=== PATIENT | female | born 1960 | race Caucasian/White ===

== ENCOUNTER 2024-02-07 11:15 | Outpatient (RCR) | payer OTHER, SELFPAY ==
--- NOTE | 2023-12-20 16:00 | OT.OP.EVAL ---
Visit Care Team Role Provider Type JIM Butler Attending Provider Non-Staff Family Provider Primary Care Provider Referring Provider Specialty: Medical Address: [address], [place], [address] Email: Occupational Therapy Initial Evaluation OT Outpatient Adult Evaluation Start: 12/21/23 09:34 Freq: Status: Active Protocol: Document 12/20/23 16:00 AMS (Rec: 12/21/23 10:17 AMS [id number]) General Information - Adult Visit Number 1 Plan of Care Dates 12/20/23 - 01/31/24 Insurance Information [facility] [employer]; x 15 visits auth to 04/18/24 Visit Start Time 13:50 Visit Stop Time 14:30 Treatment Setting Outpatient Care Note Type Initial Evaluation Identification Confirmed Yes Identification Confirmed By Self Goals Custodial Goals 1. Rosy will be modified independent with execution of home exercise program utilizing written/visual instructions as needed. Assessment/Plan Treatment Assessment Rosy (preference for Nelida) is 63 y.o. 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 Nelida's medical history is significant for arthritis, back pain, blood pressure concerns, depression, diabetes II, fibromyalgia, osteopenia, breast cancer (), and PTSD. 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 She received therapy at [facility] in [place] for her L shoulder (for rotator cuff) and both hands last year in 2022 (treatment included hand massager/cupping tool, heat packs, ultrasound, and tendon glides). A rocker knife has been rec for cutting of meat. She also reported receiving corticosteroid injections to the L thumb d/t trigger finger w/ reported resolving of symptoms, as well as received corticosteroid injection to L CMCJ. She maintains her medication list on her personal cell phone, including name, purpose, and dosage: Albuterol inhaler ( asthma), amlodipine (blood pressure), atorvastatin ( cholesterol), buspirone ( anxiety), Empagufozin ( diabetes II), cetirizine ( allergies), benadryl ( allergies night time), Cholecalciferol (D3 deficient) , gabapentin (fibromyalgia), glipizide (diabetes II), hydroxychloroquine (arthritis) , leflunomide (arthritis), letrozole (breast cancer), levothroxine (thyroid), ozempic (diabetes II), Prazosin (PTSD), zometa ( prevention of calcium loss d/t letrozole), trazadone, losartan. Pain Assessment Grid completed w/ indication of 4 out of 10 relative to anterior /top/posterior L shoulder and inferior angle/medial border of R scapula. No indication of pain/discomfort in L ankle, although, she does wear a [facility] provided brace at all times on the L ankle (or reports that she will fall). She has smaller night time bilateral hand braces, as well as larger bilateral distal UE braces ( that she can not wear d/t removal w/ PTSD associated nightmares). Ambulated to session w/ elbow crutches. QuickDASH UE Outcome Measure Score = 59.09; indication of presence of tingling (pins and needles in arm, shoulder, hand since chemotherapy in 2019). QuickDASH Sports/ Performing Arts Module Score = 25.00; she plays the acoustic guitar and practices daily for at least 15 min depending on how her hands are feeling. She has invested in a 4-inch wide memory foam based guitar strap (vs original 2-inch wide standard guitar strap) which has helped as well. She sings acapella and plays acoustic guitar weekly which helps with her PTSD. She has a daily finger/hand flexibility routine, including opposition of thumb to finger tips and thumb circles. Mild flexion posturing of digits 2-5 w/ modified prayor stretch into extension; tenderness to palpation at bilateral CMCJs. (+) thumb adductor tightness palpated along 2nd metacarpal R > L, w/ slight tendency into hyperext at MPJs bilaterally w/ active thumb abd/ext. Bilateral radial thumb abd 50 degrees active. Bilateral palmar thumb abd 45 degrees active. Rec adding to current HEP as needed. Home Exercise Program 12/20/23 = Rec cont w/ tendon glides, thumb opposition, thumb circles w/ joint awareness, w/ suggestion for modified prayer stretch for encouraging extension. Length of treatment (weeks) 6 Plan of Care Start Date 12/20/23 Plan of Care End Date 01/31/24 Treatment Frequency Once a Week Therapeutic Contents Active Range of Motion, Adaptive Equipment Education, Client Education,Functional Activities,Home Exercise Program,Joint Protection, Manual Therapy,Education, Stretching/Flexibility Activities,Therapeutic Activities,Therapeutic Exercises,Modalities Modalities As Needed,As Prescribed Additional Types of Modalities Heat/Ultrasound/Paraffin/ Contrast/Ice
--- NOTE | 2023-12-28 15:23 | OT.OP.TRT ---
Visit Care Team Role Provider Type JIM Butler Attending Provider Non-Staff Family Provider Primary Care Provider Referring Provider Specialty: Medical Address: [address], [place], [address] Email: Occupational Therapy Treatment Note OT Outpatient Treatment Note - Adult Start: 12/21/23 09:34 Freq: Status: Active Protocol: Document 12/28/23 15:01 [facility] (Rec: 12/28/23 15:23 AMS [id number]) OT Outpatient Adult Treatment Note Session Time Visit Start Time 13:45 Visit Stop Time 14:30 Visit Information Visit Number 2 Plan of Care Dates 12/20/23 - 01/31/24 Insurance Information [facility] [employer]; x 15 visits auth to 04/18/24 Setting Treatment Setting Outpatient Care Visit Type Note Type Treatment Note General Information General Information *Tape allergy Rosy (preference for Nelida) is 63 y.o. 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 Nelida's medical history is significant for arthritis, back pain, blood pressure concerns, depression, diabetes II, fibromyalgia, osteopenia, breast cancer (), and PTSD. 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 She received therapy at [facility] in [place] for her L shoulder (for rotator cuff) and both hands last year in 2022 (treatment included hand massager/cupping tool, heat packs, ultrasound, and tendon glides). A rocker knife has been rec for cutting of meat. She also reported receiving corticosteroid injections to the L thumb d/t trigger finger w/ reported resolving of symptoms, as well as received corticosteroid injection to L CMCJ. She maintains her medication list on her personal cell phone, including name, purpose, and dosage: Albuterol inhaler ( asthma), amlodipine (blood pressure), atorvastatin ( cholesterol), buspirone ( anxiety), Empagufozin ( diabetes II), cetirizine ( allergies), benadryl ( allergies night time), Cholecalciferol (D3 deficient) , gabapentin (fibromyalgia), glipizide (diabetes II), hydroxychloroquine (arthritis) , leflunomide (arthritis), letrozole (breast cancer), levothroxine (thyroid), ozempic (diabetes II), Prazosin (PTSD), zometa ( prevention of calcium loss d/t letrozole), trazadone, losartan, celebrex (200 mg daily: anti-inflammatory). Pain Assessment Grid completed w/ indication of 4 out of 10 relative to anterior/top/ posterior L shoulder and inferior angle/medial border of R scapula. No indication of pain/discomfort in L ankle, although, she does wear a [facility] provided brace at all times on the L ankle (or reports that she will fall). She has smaller night time bilateral hand braces, as well as larger bilateral distal UE braces ( that she can not wear d/t removal w/ PTSD associated nightmares). Ambulated to session w/ elbow crutches. QuickDASH UE Outcome Measure Score = 59.09; indication of presence of tingling (pins and needles in arm, shoulder, hand since chemotherapy in 2019). QuickDASH Sports/ Performing Arts Module Score = 25.00; she plays the acoustic guitar and practices daily for at least 15 min depending on how her hands are feeling. She has invested in a 4-inch wide memory foam based guitar strap (vs original 2-inch wide standard guitar strap) which has helped as well. She sings acapella and plays acoustic guitar weekly which helps with her PTSD. She has a daily finger/hand flexibility routine, including opposition of thumb to finger tips and thumb circles. Mild flexion posturing of digits 2-5 w/ modified prayor stretch into extension; tenderness to palpation at bilateral CMCJs. (+) thumb adductor tightness palpated along 2nd metacarpal R > L, w/ slight tendency into hyperext at MPJs bilaterally w/ active thumb abd/ext. Bilateral radial thumb abd 50 degrees active. Bilateral palmar thumb abd 45 degrees active. Rec adding to current HEP as needed. - Subjective Identification Type Name Identification Reconciled With Medical Record Observations Rosy reported that her MD at the [facility] suggested acupuncture d /t chronic pain. Rosy reports sleeping upright in a recliner given rotator cuff injury (L UE) and use of cpap machine. Tape allergy was identified post-op surgery for breast cancer. Patient/Caregiver Compliance with Home Excellent Exercise Program - Objective Objective Measurements Please refer to below for progress towards meeting established OT goals: Contract Designer Goals 1. Rosy will be modified independent with execution of home exercise program utilizing written/visual instructions as needed. - Treatment 2 Descriptor Manual therapy. Myofascial release completed by clinician to address thumb adductor tightness L, address reported crepitus in CMCJ. 1 Descriptor Ultrasound. 20% duty cycle; lateral 2nd metacarpal to address thumb adductor. x 8 minutes. 2.0 w/cm2. Skin intact pre- and post- treatment. Denial of pain/ discomfort with modality use. Exercises 1 Descriptor Reviewed home exercise program /discussed alternatives. Thumb circles. Tendon glides. Reviewed passive MPJ ext w/ modified prayer pose w/ hold of 20-30 sec both ways. Reviewed bilateral self- myofasical release w/ hold of 20-30 sec both ways. Passive wrist/digit ext w/ forearm pronation w/ elbow in 90 degrees flex. Discussed potential use of TT and/or wall for passive wrist/digit ext; Rosy indicated that these would not be good options for her. Instructed in passive wrist RD/UD w/ use of TT w/ hold of 20-30 sec. - Assessment Assessment of Improvement Rosy reported [facility] recommended consideration of seeing an telegraph messenger given her chronic pain. Reviewed HEP and discussed alternatives/ modifications to current exercises. Also recommended consideration of passive wrist UD/RD. (+) tolerance and response to US and manual massage. In addition to medical information that Rosy keeps readily available on her cell phone, Rosy also utilizes a [employer] booklet in her personal wallet in case of emergencies (and has notified friends' and family of its location). Rec adding to current HEP as needed. Plan is to obtain written/visual instructions for Rosy prior to next session. - Plan Therapy Recommendations Continue with Current Program, Advance per Rehabilitation Protocol
--- NOTE | 2024-01-03 15:53 | OT.OP.TRT ---
Visit Care Team Role Provider Type JIM Butler Attending Provider Non-Staff Family Provider Primary Care Provider Referring Provider Specialty: Medical Address: [address], [place], [address] Email: Occupational Therapy Treatment Note OT Outpatient Treatment Note - Adult Start: 12/21/23 09:34 Freq: Status: Active Protocol: Document 01/03/24 15:38 AMS (Rec: 01/03/24 15:52 AMS [id number]) OT Outpatient Adult Treatment Note Session Time Visit Start Time 11:15 Visit Stop Time 11:59 Visit Information Visit Number 3 Plan of Care Dates 12/20/23 - 01/31/24 Insurance Information [facility] [employer]; x 15 visits auth to 04/18/24 Setting Treatment Setting Outpatient Care Visit Type Note Type Treatment Note General Information General Information *Tape allergy Rosy (preference for Nelida) is 63 y.o. 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 Nelida's medical history is significant for arthritis, back pain, blood pressure concerns, depression, diabetes II, fibromyalgia, osteopenia, breast cancer (), and PTSD. 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 She received therapy at [facility] in [place] for her L shoulder (for rotator cuff) and both hands last year in 2022 (treatment included hand massager/cupping tool, heat packs, ultrasound, and tendon glides). A rocker knife has been rec for cutting of meat. She also reported receiving corticosteroid injections to the L thumb d/t trigger finger w/ reported resolving of symptoms, as well as received corticosteroid injection to L CMCJ. She maintains her medication list on her personal cell phone, including name, purpose, and dosage: Albuterol inhaler ( asthma), amlodipine (blood pressure), atorvastatin ( cholesterol), buspirone ( anxiety), Empagufozin ( diabetes II), cetirizine ( allergies), benadryl ( allergies night time), Cholecalciferol (D3 deficient) , gabapentin (fibromyalgia), glipizide (diabetes II), hydroxychloroquine (arthritis) , leflunomide (arthritis), letrozole (breast cancer), levothroxine (thyroid), ozempic (diabetes II), Prazosin (PTSD), zometa ( prevention of calcium loss d/t letrozole), trazadone, losartan, celebrex (200 mg daily: anti-inflammatory). Pain Assessment Grid completed w/ indication of 4 out of 10 relative to anterior/top/ posterior L shoulder and inferior angle/medial border of R scapula. No indication of pain/discomfort in L ankle, although, she does wear a VA provided brace at all times on the L ankle (or reports that she will fall). She has smaller night time bilateral hand braces, as well as larger bilateral distal UE braces ( that she can not wear d/t removal w/ PTSD associated nightmares). Ambulated to session w/ elbow crutches. QuickDASH UE Outcome Measure Score = 59.09; indication of presence of tingling (pins and needles in arm, shoulder, hand since chemotherapy in 2019). QuickDASH Sports/ Performing Arts Module Score = 25.00; she plays the acoustic guitar and practices daily for at least 15 min depending on how her hands are feeling. She has invested in a 4-inch wide memory foam based guitar strap (vs original 2-inch wide standard guitar strap) which has helped as well. She sings acapella and plays acoustic guitar weekly which helps with her PTSD. She has a daily finger/hand flexibility routine, including opposition of thumb to finger tips and thumb circles. Mild flexion posturing of digits 2-5 w/ modified prayor stretch into extension; tenderness to palpation at bilateral CMCJs. (+) thumb adductor tightness palpated along 2nd metacarpal R > L, w/ slight tendency into hyperext at MPJs bilaterally w/ active thumb abd/ext. Bilateral radial thumb abd 50 degrees active. Bilateral palmar thumb abd 45 degrees active. Rec adding to current HEP as needed. - Subjective Identification Type Name Identification Reconciled With Medical Record Observations Report of wearing of fisherman 's gloves (fleece material); reported positive response to isotoner/compression gloves that are approx 2-3 inches to wrists for swelling management ; denied dx of lymphedema post - breast cancer surgery. Denied playing music given discomfort; will be singing later this afternoon w/ [employer] group. 12/28/23 = Rosy reported that her [facility] suggested acupuncture d/t chronic pain. Sleeps upright in recliner given rotator cuff injury (L UE); uses cpap machine. Tape allergy was identified post-op surgery for breast cancer. Patient/Caregiver Compliance with Home Excellent Exercise Program - Objective Objective Measurements Please refer to below for progress towards meeting established OT goals: Radar Operator Goals 1. Rosy will be modified independent with execution of home exercise program utilizing written/visual instructions as needed. - Treatment 2 Descriptor Manual therapy. Myofascial release completed by clinician to address thumb adductor tightness. 1 Descriptor Ultrasound. 20% duty cycle; lateral 2nd metacarpal to address tightness of the thumb space (volar/dorsal surface). x 10 minutes x 2. 2.0 w/cm2. Skin intact pre- and post- treatment. Denial of pain/ discomfort with modality use. Exercises 1 Descriptor Reviewed home exercise program /discussed alternatives. Thumb circles. Tendon glides. Reviewed passive MPJ ext w/ modified prayer pose w/ hold of 20-30 sec both ways. Reviewed bilateral self- myofasical release w/ hold of 20-30 sec both ways. Passive wrist/digit ext w/ forearm pronation w/ elbow in 90 degrees flex. Discussed potential use of TT and/or wall for passive wrist/digit ext; Rosy indicated that these would not be good options for her. Instructed in passive wrist RD/UD w/ use of TT w/ hold of 20-30 sec. - Assessment Assessment of Improvement (+) tolerance and response to US and manual massage. Mild edema present L CMCJ noted. Grinding/crepitus at MPJ. Increased tightness of L thumb webspace (noted medially, along shaft of 2nd metacarpal) compared to previous treatment session. Increased tenderness/inflammation noted distal to MPJ at site of attachment w/ tendency into hyperextension at the MPJ. (+) use of heat; may want to consider contrast baths. Rec adding to current HEP as needed. Plan is to obtain written/visual instructions for Rosy prior to next session. - Plan Therapy Recommendations Continue with Current Program, Advance per Rehabilitation Protocol
--- NOTE | 2024-01-11 16:01 | OT.OP.TRT ---
Visit Care Team Role Provider Type JIM Butler Attending Provider Non-Staff Family Provider Primary Care Provider Referring Provider Specialty: Medical Address: [address], [place], [address] Email: Occupational Therapy Treatment Note OT Outpatient Treatment Note - Adult Start: 12/21/23 09:34 Freq: Status: Active Protocol: Document 01/11/24 15:50 AMS (Rec: 01/11/24 16:00 AMS [id number]) OT Outpatient Adult Treatment Note Session Time Visit Start Time 13:55 Visit Stop Time 14:28 Visit Information Visit Number 5 Plan of Care Dates 12/20/23 - 01/31/24 Insurance Information [facility] [employer]; x 15 visits auth to 04/18/24 Setting Treatment Setting Outpatient Care Visit Type Note Type Treatment Note General Information General Information *Tape allergy Rosy (preference for Nelida) is 63 y.o. 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 Nelida's medical history is significant for arthritis, back pain, blood pressure concerns, depression, diabetes II, fibromyalgia, osteopenia, breast cancer (), and PTSD. 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 She received therapy at [facility] in [place] for her L shoulder (for rotator cuff) and both hands last year in 2022 (treatment included hand massager/cupping tool, heat packs, ultrasound, and tendon glides). A rocker knife has been rec for cutting of meat. She also reported receiving corticosteroid injections to the L thumb d/t trigger finger w/ reported resolving of symptoms, as well as received corticosteroid injection to L CMCJ. She maintains her medication list on her personal cell phone, including name, purpose, and dosage: Albuterol inhaler ( asthma), amlodipine (blood pressure), atorvastatin ( cholesterol), buspirone ( anxiety), Empagufozin ( diabetes II), cetirizine ( allergies), benadryl ( allergies night time), Cholecalciferol (D3 deficient) , gabapentin (fibromyalgia), glipizide (diabetes II), hydroxychloroquine (arthritis) , leflunomide (arthritis), letrozole (breast cancer), levothroxine (thyroid), ozempic (diabetes II), Prazosin (PTSD), zometa ( prevention of calcium loss d/t letrozole), trazadone, losartan, celebrex (200 mg daily: anti-inflammatory). Pain Assessment Grid completed w/ indication of 4 out of 10 relative to anterior/top/ posterior L shoulder and inferior angle/medial border of R scapula. No indication of pain/discomfort in L ankle, although, she does wear a VA provided brace at all times on the L ankle (or reports that she will fall). She has smaller night time bilateral hand braces, as well as larger bilateral distal UE braces ( that she can not wear d/t removal w/ PTSD associated nightmares). Ambulated to session w/ elbow crutches. QuickDASH UE Outcome Measure Score = 59.09; indication of presence of tingling (pins and needles in arm, shoulder, hand since chemotherapy in 2019). QuickDASH Sports/ Performing Arts Module Score = 25.00; she plays the acoustic guitar and practices daily for at least 15 min depending on how her hands are feeling. She has invested in a 4-inch wide memory foam based guitar strap (vs original 2-inch wide standard guitar strap) which has helped as well. She sings acapella and plays acoustic guitar weekly which helps with her PTSD. She has a daily finger/hand flexibility routine, including opposition of thumb to finger tips and thumb circles. Mild flexion posturing of digits 2-5 w/ modified prayor stretch into extension; tenderness to palpation at bilateral CMCJs. (+) thumb adductor tightness palpated along 2nd metacarpal R > L, w/ slight tendency into hyperext at MPJs bilaterally w/ active thumb abd/ext. Bilateral radial thumb abd 50 degrees active. Bilateral palmar thumb abd 45 degrees active. Rec adding to current HEP as needed. - Subjective Identification Type Name Identification Reconciled With Medical Record Observations Rosy reported doing her exercises 2-3 times per day; she singing this weekend with her [employer] group. Use of circular silicone pad (dycem? or silicone cone jar truss puller helper) to assist with opening items/ including water bottles. 01/11/24 = Meaningful activities include playing the guitar, singing in [employer] group. Wears fleece [employer] gloves. (+) response to isotoner/compression gloves ~2 -3 inches to wrists. Rosy reported that [facility] suggested [facility] d/t chronic pain. Sleeps upright in recliner given rotator cuff injury (L UE); uses cpap machine. Tape allergy was identified post-op surgery for breast cancer. Patient/Caregiver Compliance with Home Excellent Exercise Program - Objective Objective Measurements Please refer to below for progress towards meeting established OT goals: Fpc Goals 1. Rosy will be modified independent with execution of home exercise program utilizing written/visual instructions as needed. - Treatment 3 Descriptor Use of heat. x 10 minutes. Skin intact pre- and post- treatment. Denied any pain/ discomfort w/ heat. 2 Descriptor Manual therapy. Myofascial release completed by clinician to address thumb adductor tightness. 1 Descriptor Ultrasound. 20% duty cycle; x 10 minutes. 2.0 w/cm2. Skin intact pre- and post- treatment. Address swelling. Site of CMC. Denial of pain/ discomfort with modality use. - Assessment Assessment of Improvement Good recall of previous treatment sessions and good awareness of problem solving strategies (relative to use of AE, such as dycem silicone cone/or AE similar to this to assist w/ opening containers, including water bottles); completing exercises daily 2-3 times based on report. (+) tolerance and response to US and manual massage. (+) use of heat at home; did use x 10 minutes at beginning of session based on patient request; may want to consider contrast baths. Rec adding to current HEP as needed. - Plan Therapy Recommendations Continue with Current Program, Advance per Rehabilitation Protocol
--- NOTE | 2024-01-17 16:00 | OT.OP.TRT ---
Visit Care Team Role Provider Type JIM Butler Attending Provider Non-Staff Family Provider Primary Care Provider Referring Provider Specialty: Medical Address: [address], [place], [address] Email: Occupational Therapy Treatment Note OT Outpatient Treatment Note - Adult Start: 12/21/23 09:34 Freq: Status: Active Protocol: Document 01/17/24 16:00 AMS (Rec: 01/18/24 10:21 AMS [id number]) OT Outpatient Adult Treatment Note Session Time Visit Start Time 13:45 Visit Stop Time 14:25 Visit Information Visit Number 6 Plan of Care Dates 12/20/23 - 01/31/24 Insurance Information [employer]; x 15 visits auth to 04/18/24 Setting Treatment Setting Outpatient Care Visit Type Note Type Treatment Note General Information General Information *Tape allergy Rosy (preference for Nelida) is 63 y.o. 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 Nelida's medical history is significant for arthritis, back pain, blood pressure concerns, depression, diabetes II, fibromyalgia, osteopenia, breast cancer (), and PTSD. 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 She received therapy at [facility] in [place] for her L shoulder (for rotator cuff) and both hands last year in 2022 (treatment included hand massager/cupping tool, heat packs, ultrasound, and tendon glides). A rocker knife has been rec for cutting of meat. She also reported receiving corticosteroid injections to the L thumb d/t trigger finger w/ reported resolving of symptoms, as well as received corticosteroid injection to L CMCJ. She maintains her medication list on her personal cell phone, including name, purpose, and dosage: Albuterol inhaler ( asthma), amlodipine (blood pressure), atorvastatin ( cholesterol), buspirone ( anxiety), Empagufozin ( diabetes II), cetirizine ( allergies), benadryl ( allergies night time), Cholecalciferol (D3 deficient) , gabapentin (fibromyalgia), glipizide (diabetes II), hydroxychloroquine (arthritis) , leflunomide (arthritis), letrozole (breast cancer), levothroxine (thyroid), ozempic (diabetes II), Prazosin (PTSD), zometa ( prevention of calcium loss d/t letrozole), trazadone, losartan, celebrex (200 mg daily: anti-inflammatory). Pain Assessment Grid completed w/ indication of 4 out of 10 relative to anterior/top/ posterior L shoulder and inferior angle/medial border of R scapula. No indication of pain/discomfort in L ankle, although, she does wear a [facility] provided brace at all times on the L ankle (or reports that she will fall). She has smaller night time bilateral hand braces, as well as larger bilateral distal UE braces ( that she can not wear d/t removal w/ PTSD associated nightmares). Ambulated to session w/ elbow crutches. QuickDASH UE Outcome Measure Score = 59.09; indication of presence of tingling (pins and needles in arm, shoulder, hand since chemotherapy in 2019). QuickDASH Sports/ Performing Arts Module Score = 25.00; she plays the acoustic guitar and practices daily for at least 15 min depending on how her hands are feeling. She has invested in a 4-inch wide memory foam based guitar strap (vs original 2-inch wide standard guitar strap) which has helped as well. She sings acapella and plays acoustic guitar weekly which helps with her PTSD. She has a daily finger/hand flexibility routine, including opposition of thumb to finger tips and thumb circles. Mild flexion posturing of digits 2-5 w/ modified prayor stretch into extension; tenderness to palpation at bilateral CMCJs. (+) thumb adductor tightness palpated along 2nd metacarpal R > L, w/ slight tendency into hyperext at MPJs bilaterally w/ active thumb abd/ext. Bilateral radial thumb abd 50 degrees active. Bilateral palmar thumb abd 45 degrees active. Rec adding to current HEP as needed. - Subjective Identification Type Name Identification Reconciled With Medical Record Observations Rosy reported doing her exercises 2-3 times per day; she singing this weekend with her [employer]. Use of circular silicone pad (dycem? or silicone cone jar canal equipment mechanic) to assist with opening items/ including water bottles. 01/11/24 = Meaningful activities include playing the guitar, singing in [employer]. Wears fleece [employer] gloves. (+) response to isotoner/compression gloves ~2 -3 inches to wrists. Rosy reported that her MD at the [facility] suggested acupuncture d/t chronic pain. Sleeps upright in recliner given rotator cuff injury (L UE); uses cpap machine. Tape allergy was identified post-op surgery for breast cancer. Patient/Caregiver Compliance with Home Excellent Exercise Program - Objective Objective Measurements Please refer to below for progress towards meeting established OT goals: [facility] Goals 1. Rosy will be modified independent with execution of home exercise program utilizing written/visual instructions as needed. - Treatment 3 Descriptor Use of heat. x 10 minutes. Skin intact pre- and post- treatment. Denied any pain/ discomfort w/ heat. 2 Descriptor Manual therapy. Myofascial release completed by clinician to address thumb adductor tightness. 1 Descriptor Ultrasound. 20% duty cycle; x 10 minutes. 2.0 w/cm2. Skin intact pre- and post- treatment. Address swelling. Volar surface of palm/radial. Discomfort verbalized on 1 occasion; 'there is a spot in there'. Exercises 1 Descriptor Reviewed home exercise program /discussed alternatives. Thumb circles. Tendon glides. Passive MPJ ext w/ modified prayer pose w/ hold of 20-30 sec both ways. Bilateral self- myofasical release w/ hold of 20-30 sec both ways; instructed in modification w/ use of 'practice golf ball'. Instructed in passive functional 'c' or thumb -> 2nd digit pad tip pinch w/ use of 'practice golf ball'; rec hold for 20-30 seconds (to support motor retraining/ passive ranging). Trialed tug- o-war w/ 'practice golf ball' w/ tip pinch w/ contralateral hand pulling for isometric hold for 3-5 sec; verbally indicated discomfort w/ this exercise. Thus, ceased (could work up to 3 x 10). Passive wrist/digit ext w/ forearm pronation w/ elbow in 90 degrees flex. Discussed potential use of TT and/or wall for passive wrist/digit ext; Rosy indicated that these would not be good options for her. Instructed in passive wrist RD/UD w/ use of TT w/ hold of 20-30 sec. - Assessment Assessment of Improvement Utilization of single R elbow crutch w/ reported main concern of ankle w/ balance. Good recall of previous treatment sessions and good awareness of problem solving strategies (relative to use of AE, such as dycem silicone cone/or AE similar to this to assist w/ opening containers). (+) tolerance and response to US and manual massage. Trialed modified myofascial release w/ use of 'practice golf ball'; trialed use of practice golf ball for retraining of functional 'c'/ maintaining available ROM, as well as isometric functional ' c'/tip pinch. Discomfort reported w/ this exercise, thus, ceased. Could work on increasing reps. Cont to review joint protection principles/avoiding positions of deformity w/ rice drier operator particularly when force is used. Indicated that golf ball was uncomfortable w/ preference for practice golf ball. Rec adding to current HEP as needed. - Plan Therapy Recommendations Continue with Current Program, Advance per Rehabilitation Protocol
--- NOTE | 2024-01-24 16:00 | OT.OP.TRT ---
Visit Care Team Role Provider Type JIM Butler Attending Provider Non-Staff Family Provider Primary Care Provider Referring Provider Specialty: Medical Address: [address], [place], [address] Email: Occupational Therapy Treatment Note OT Outpatient Treatment Note - Adult Start: 12/21/23 09:34 Freq: Status: Active Protocol: Document 01/24/24 16:00 AMS (Rec: 01/25/24 10:20 AMS [id number]) OT Outpatient Adult Treatment Note Session Time Visit Start Time 14:30 Visit Stop Time 15:15 Visit Information Visit Number 7 Plan of Care Dates 12/20/23 - 01/31/24 Insurance Information [facility] [employer]; x 15 visits auth to 04/18/24 Setting Treatment Setting Outpatient Care Visit Type Note Type Treatment Note General Information General Information *Tape allergy Rosy (preference for Nelida) is 63 y.o. 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 Nelida's medical history is significant for arthritis, back pain, blood pressure concerns, depression, diabetes II, fibromyalgia, osteopenia, breast cancer (), and PTSD. 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 She received therapy at [facility] in [place] for her L shoulder (for rotator cuff) and both hands last year in 2022 (treatment included hand massager/cupping tool, heat packs, ultrasound, and tendon glides). A rocker knife has been rec for cutting of meat. She also reported receiving corticosteroid injections to the L thumb d/t trigger finger w/ reported resolving of symptoms, as well as received corticosteroid injection to L CMCJ. She maintains her medication list on her personal cell phone, including name, purpose, and dosage: Albuterol inhaler ( asthma), amlodipine (blood pressure), atorvastatin ( cholesterol), buspirone ( anxiety), Empagufozin ( diabetes II), cetirizine ( allergies), benadryl ( allergies night time), Cholecalciferol (D3 deficient) , gabapentin (fibromyalgia), glipizide (diabetes II), hydroxychloroquine (arthritis) , leflunomide (arthritis), letrozole (breast cancer), levothroxine (thyroid), ozempic (diabetes II), Prazosin (PTSD), zometa ( prevention of calcium loss d/t letrozole), trazadone, losartan, celebrex (200 mg daily: anti-inflammatory). Pain Assessment Grid completed w/ indication of 4 out of 10 relative to anterior/top/ posterior L shoulder and inferior angle/medial border of R scapula. No indication of pain/discomfort in L ankle, although, she does wear a [facility] provided brace at all times on the L ankle (or reports that she will fall). She has smaller night time bilateral hand braces, as well as larger bilateral distal UE braces ( that she can not wear d/t removal w/ PTSD associated nightmares). Ambulated to session w/ elbow crutches. QuickDASH UE Outcome Measure Score = 59.09; indication of presence of tingling (pins and needles in arm, shoulder, hand since chemotherapy in 2019). QuickDASH Sports/ Performing Arts Module Score = 25.00; she plays the acoustic guitar and practices daily for at least 15 min depending on how her hands are feeling. She has invested in a 4-inch wide memory foam based guitar strap (vs original 2-inch wide standard guitar strap) which has helped as well. She sings acapella and plays acoustic guitar weekly which helps with her PTSD. She has a daily finger/hand flexibility routine, including opposition of thumb to finger tips and thumb circles. Mild flexion posturing of digits 2-5 w/ modified prayor stretch into extension; tenderness to palpation at bilateral CMCJs. (+) thumb adductor tightness palpated along 2nd metacarpal R > L, w/ slight tendency into hyperext at MPJs bilaterally w/ active thumb abd/ext. Bilateral radial thumb abd 50 degrees active. Bilateral palmar thumb abd 45 degrees active. Rec adding to current HEP as needed. - Subjective Identification Type Name Identification Reconciled With Medical Record Observations Report of doing thumb circles if when she wakes in the middle of the night when she feels as though the thumbs are locking up. Demonstrated 1st dorsal interrossei abduction exercise. 01/17/24 = Use of circular silicone pad (dycem? or silicone cone jar fire department marine engineer) to assist with opening items/ including water bottles. 01/11/24 = Meaningful activities include playing the [employer], singing in [employer]. Wears fleece [employer] gloves. (+) response to isotoner/compression gloves ~2 -3 inches to wrists. Rosy reported that her MD at the [facility] suggested acupuncture d/t chronic pain. Sleeps upright in recliner given rotator cuff injury (L UE); uses cpap machine. Patient/Caregiver Compliance with Home Excellent Exercise Program - Objective Objective Measurements Please refer to below for progress towards meeting established OT goals: Property Economist Goals 1. Rosy will be modified independent with execution of home exercise program utilizing written/visual instructions as needed. - Treatment 2 Descriptor Manual therapy. Myofascial release completed by clinician to address thumb adductor tightness. 1 Descriptor Ultrasound. 20% duty cycle; x 10 minutes. 2.0 w/cm2. Skin intact pre- and post- treatment. Address swelling. Dorsal surface of hand ( between 1st and 2nd metacarpals). Discomfort verbalized on 1 occasion; ' there is a spot in there'. Exercises 1 Descriptor Reviewed HEP/discussed alternatives. Thumb circles. Tendon glides. Passive MPJ ext w/ modified prayer pose w/ hold of 20-30 sec both ways. Bilateral self-myofasical release w/ hold of 20-30 sec both ways; instructed in modification w/ use of ' practice golf ball'. Instructed in passive functional 'c' or thumb -> 2nd digit pad tip pinch w/ use of 'practice golf ball'; rec hold for 20-30 seconds (to support motor retraining/ passive ranging). Trialed tug- o-war w/ 'practice golf ball' w/ tip pinch w/ contralateral hand pulling for isometric hold for 3-5 sec; verbally indicated discomfort w/ this exercise. Thus, ceased (could work up to 3 x 10). Passive wrist/digit ext w/ forearm pronation w/ elbow in 90 degrees flex. Discussed potential use of TT and/or wall for passive wrist/digit ext; Rosy indicated that these would not be good options for her. Instructed in passive wrist RD/UD w/ use of TT w/ hold of 20-30 sec. - Assessment Assessment of Improvement Utilization of single R elbow crutch. Good recall of previous treatment sessions and good awareness of problem solving strategies. (+) tolerance and response to US and manual massage. Reviewed exercises; tolerated myofascial thumb release stretch w/ practice golf ball approx 5 sec bilaterally. Did functional 'c' thumb to 2nd finger tip pad touches 1 x 10 bilaterally; need to ensure focus is on tip pinch vs strengthening thumb adductor. Did isometric hold for 2-3 sec x 2 reps prior to fatigue. Demonstrated awareness of dorsal interrossei strengthening; report of loss of rubberband. Cont to review joint protection principles/ avoiding positions of deformity w/ surgical supply assistant particularly when force is used. Indicated that golf ball was uncomfortable w/ preference for practice golf ball. Rec adding to current HEP as needed. - Plan Therapy Recommendations Continue with Current Program, Advance per Rehabilitation Protocol
--- NOTE | 2024-01-31 15:42 | OT.OPPOC ---
Physical, Occupational & Speech Therapy At [facility] Rosy Longoria [id number] 1960 Visit Care Team Role Provider Type JIM Butler Attending Provider Non-Staff Family Provider Primary Care Provider Referring Provider Address: [address], [place], [address] Occupational Therapy Plan of Care OT Outpatient Adult Evaluation Start: 12/21/23 09:34 Freq: Status: Active Protocol: Document 12/20/23 16:00 AMS (Rec: 12/21/23 10:17 AMS [id number]) General Information - Adult Visit Information Visit Number 1 Plan of Care Dates 12/20/23 - 01/31/24 Insurance Information [facility]; x 15 visits auth to 04/18/24 Session Time Visit Start Time 13:50 Visit Stop Time 14:30 Setting Treatment Setting Outpatient Care Visit Type Note Type Initial Evaluation Identification Identification Confirmed Yes Identification Confirmed By Self Goals [employer] Goals Mcfp Goals 1. Rosy will be modified independent with execution of home exercise program utilizing written/visual instructions as needed. Assessment/Plan Assessment Treatment Assessment Rosy (preference for Nelida) is 63 y.o. 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 Nelida's medical history is significant for arthritis, back pain, blood pressure concerns, depression, diabetes II, fibromyalgia, osteopenia, breast cancer (), and PTSD. 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 She received therapy at [facility] and [facility] in [place] for her L shoulder (for rotator cuff) and both hands last year in 2022 (treatment included hand massager/cupping tool, heat packs, ultrasound, and tendon glides). A rocker knife has been rec for cutting of meat. She also reported receiving corticosteroid injections to the L thumb d/t trigger finger w/ reported resolving of symptoms, as well as received corticosteroid injection to L CMCJ. She maintains her medication list on her personal cell phone, including name, purpose, and dosage: Albuterol inhaler ( asthma), amlodipine (blood pressure), atorvastatin ( cholesterol), buspirone ( anxiety), Empagufozin ( diabetes II), cetirizine ( allergies), benadryl ( allergies night time), Cholecalciferol (D3 deficient) , gabapentin (fibromyalgia), glipizide (diabetes II), hydroxychloroquine (arthritis) , leflunomide (arthritis), letrozole (breast cancer), levothroxine (thyroid), ozempic (diabetes II), Prazosin (PTSD), zometa ( prevention of calcium loss d/t letrozole), trazadone, losartan. Pain Assessment Grid completed w/ indication of 4 out of 10 relative to anterior /top/posterior L shoulder and inferior angle/medial border of R scapula. No indication of pain/discomfort in L ankle, although, she does wear a [facility] provided brace at all times on the L ankle (or reports that she will fall). She has smaller night time bilateral hand braces, as well as larger bilateral distal UE braces ( that she can not wear d/t removal w/ PTSD associated nightmares). Ambulated to session w/ elbow crutches. QuickDASH UE Outcome Measure Score = 59.09; indication of presence of tingling (pins and needles in arm, shoulder, hand since chemotherapy in 2019). QuickDASH Sports/ Performing Arts Module Score = 25.00; she plays the acoustic guitar and practices daily for at least 15 min depending on how her hands are feeling. She has invested in a 4-inch wide memory foam based guitar strap (vs original 2-inch wide standard guitar strap) which has helped as well. She sings acapella and plays acoustic guitar weekly which helps with her PTSD. She has a daily finger/hand flexibility routine, including opposition of thumb to finger tips and thumb circles. Mild flexion posturing of digits 2-5 w/ modified prayor stretch into extension; tenderness to palpation at bilateral CMCJs. (+) thumb adductor tightness palpated along 2nd metacarpal R > L, w/ slight tendency into hyperext at MPJs bilaterally w/ active thumb abd/ext. Bilateral radial thumb abd 50 degrees active. Bilateral palmar thumb abd 45 degrees active. Rec adding to current HEP as needed. Home Exercise Program 12/20/23 = Rec cont w/ tendon glides, thumb opposition, thumb circles w/ joint awareness, w/ suggestion for modified prayer stretch for encouraging extension. Plan Length of treatment (weeks) 6 Plan of Care Start Date 12/20/23 Plan of Care End Date 01/31/24 Treatment Frequency Once a Week Therapeutic Contents Active Range of Motion, Adaptive Equipment Education, Client Education,Functional Activities,Home Exercise Program,Joint Protection, Manual Therapy,Education, Stretching/Flexibility Activities,Therapeutic Activities,Therapeutic Exercises,Modalities Modalities As Needed,As Prescribed Additional Types of Modalities Heat/Ultrasound/Paraffin/ Contrast/Ice Functional Wrist/Hand Scan Hand Side Sensory Assessment Sensory Profile2 OT Outpatient Treatment Note - Adult Start: 12/21/23 09:34 Freq: Status: Active Protocol: Document 01/31/24 15:29 AMS (Rec: 01/31/24 15:42 AMS [id number]) OT Outpatient Adult Treatment Note Session Time Visit Start Time 13:45 Visit Stop Time 14:25 Visit Information Visit Number 8 Plan of Care Dates 01/31/24 - 03/13/24 Insurance Information [facility]; x 15 visits auth to 04/18/24 Setting Treatment Setting Outpatient Care Visit Type Note Type Progress Note General Information General Information *Tape allergy Rosy (preference for Nelida) is 63 y.o. 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 Nelida's medical history is significant for arthritis, back pain, blood pressure concerns, depression, diabetes II, fibromyalgia, osteopenia, breast cancer (), and PTSD. 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 She received therapy at [facility] in [place] for her L shoulder (for rotator cuff) and both hands last year in 2022 (treatment included hand massager/cupping tool, heat packs, ultrasound, and tendon glides). A rocker knife has been rec for cutting of meat. She also reported receiving corticosteroid injections to the L thumb d/t trigger finger w/ reported resolving of symptoms, as well as received corticosteroid injection to L CMCJ. She maintains her medication list on her personal cell phone, including name, purpose, and dosage: Albuterol inhaler ( asthma), amlodipine (blood pressure), atorvastatin ( cholesterol), buspirone ( anxiety), Empagufozin ( diabetes II), cetirizine ( allergies), benadryl ( allergies night time), Cholecalciferol (D3 deficient) , gabapentin (fibromyalgia), glipizide (diabetes II), hydroxychloroquine (arthritis) , leflunomide (arthritis), letrozole (breast cancer), levothroxine (thyroid), ozempic (diabetes II), Prazosin (PTSD), zometa ( prevention of calcium loss d/t letrozole), trazadone, losartan, celebrex (200 mg daily: anti-inflammatory). Pain Assessment Grid completed w/ indication of 4 out of 10 relative to anterior/top/ posterior L shoulder and inferior angle/medial border of R scapula. No indication of pain/discomfort in L ankle, although, she does wear a [facility] provided brace at all times on the L ankle (or reports that she will fall). She has smaller night time bilateral hand braces, as well as larger bilateral distal UE braces ( that she can not wear d/t removal w/ PTSD associated nightmares). Ambulated to session w/ elbow crutches. QuickDASH UE Outcome Measure Score = 59.09; indication of presence of tingling (pins and needles in arm, shoulder, hand since chemotherapy in 2019). QuickDASH Sports/ Performing Arts Module Score = 25.00; she plays the acoustic guitar and practices daily for at least 15 min depending on how her hands are feeling. She has invested in a 4-inch wide memory foam based guitar strap (vs original 2-inch wide standard guitar strap) which has helped as well. She sings acapella and plays acoustic guitar weekly which helps with her PTSD. She has a daily finger/hand flexibility routine, including opposition of thumb to finger tips and thumb circles. Mild flexion posturing of digits 2-5 w/ modified prayor stretch into extension; tenderness to palpation at bilateral CMCJs. (+) thumb adductor tightness palpated along 2nd metacarpal R > L, w/ slight tendency into hyperext at MPJs bilaterally w/ active thumb abd/ext. Bilateral radial thumb abd 50 degrees active. Bilateral palmar thumb abd 45 degrees active. Rec adding to current HEP as needed. - Subjective Identification Type Name Identification Reconciled With Medical Record Observations Use of single L elbow crutch d /t instability of ankle; use of lanyard and clothing with pockets available for use for transportation of items. 01/17/24 = Use of circular silicone pad (dycem? or silicone cone jar cpht) to assist with opening items/ including water bottles. 01/11/24 = Meaningful activities include playing the [employer], singing in [employer]. Wears fleece [employer] gloves. (+) response to isotoner/compression gloves ~2 -3 inches to wrists. Rosy reported that her MD at the [facility] suggested acupuncture d/t chronic pain. Sleeps upright in recliner given rotator cuff injury (L UE); uses cpap machine. Patient/Caregiver Compliance with Home Excellent Exercise Program - Objective Objective Measurements Please refer to below for progress towards meeting established OT goals: Mcfp Goals 1. Rosy will be modified independent with execution of home exercise program utilizing written/visual instructions as needed. - Treatment 2 Descriptor Manual therapy. Myofascial release completed by clinician to address thumb adductor tightness. 1 Descriptor Ultrasound. 20% duty cycle; x 10 minutes. 2.0 w/cm2. Skin intact pre- and post- treatment. Address swelling/ muscular tightness. Dorsal surface of hand (between 1st and 2nd metacarpals). Ultrasound. 20% duty cycle; x 10 minutes. 2.0 w/cm2. Skin intact pre- and post- treatment. Volar surface/palm of L hand/distal L thumb webspace. Exercises 1 Descriptor Reviewed HEP/discussed alternatives. Thumb circles. Tendon glides. Passive MPJ ext w/ modified prayer pose w/ hold of 20-30 sec both ways. Bilateral self-myofasical release w/ hold of 20-30 sec both ways; instructed in modification w/ use of ' practice golf ball'. Instructed in passive functional 'c' or thumb -> 2nd digit pad tip pinch w/ use of 'practice golf ball'; rec hold for 20-30 seconds (to support motor retraining/ passive ranging). Trialed tug- o-war w/ 'practice golf ball' w/ tip pinch w/ contralateral hand pulling for isometric hold for 3-5 sec; verbally indicated discomfort w/ this exercise. Thus, ceased (could work up to 3 x 10). Passive wrist/digit ext w/ forearm pronation w/ elbow in 90 degrees flex. Discussed potential use of TT and/or wall for passive wrist/digit ext; Rosy indicated that these would not be good options for her. Instructed in passive wrist RD/UD w/ use of TT w/ hold of 20-30 sec. - Assessment Assessment of Improvement Utilization of single L elbow crutch (use of single R elbow crutch session before); elbow crutches utilized w/ mobility given instability of ankle and increased risk for loss of balance/fall. Rosy demonstrates good recall of exercises instructed in, including ability to recall exercises as per directed by previous therapist. She demonstrates good functional problem solving and actively utilizes adaptive equipment as needed/modification strategies, such as lanyard, medical ID in personal wallet, circular dycem pad for opening of containers and is kept in car. She limits her guitar play time to 15 minutes and performs ROM as needed, as well as wears splints at night as directed previously. She performs thumb circles/ active thumb flex/ext/abd and has been instructed on myofascial thumb release, isometric functional 'c' or 'o ' strengthening and is aware of dorsal interrossei strengthening w/ rubberband. Continued therapy services to advance HEP as tolerated, review joint protection principles/avoiding positions of deformity w/ van cdl driver particularly when force is used. - Plan Therapy Recommendations Continue with Current Program, Advance per Rehabilitation Protocol Comment 6 weeks Frequency of Treatment Once a Week Therapeutic Contents Active Range of Motion, Adaptive Equipment Education, Functional Activities,Home Exercise Program,Joint Protection,Manual Therapy, Education,Neurodevelopment Treatment,Neuromuscular Re- Education,Self-Care,Stretching /Flexibility Activities, Therapeutic Activities, Therapeutic Exercises, Modalities Modalities As Needed,As Prescribed Additional Types of Modalities Heat/Ice/Contrast Baths/ Ultrasound/Paraffin bath Electronically Signed by: Alondra Acosta OT 01/31/24 9920 If you are in agreement with this Plan of Care, please return a signed and dated copy. I have reviewed this Plan of Care and certify that the skilled therapy services above are required to meet the patient?s needs. Physician Signature Date Printed Name and Credentials Clinical Instructor Signature Printed Name and Credentials
--- NOTE | 2024-02-07 15:37 | OT.OP.TRT ---
Visit Care Team Role Provider Type JIM Butler Attending Provider Non-Staff Family Provider Primary Care Provider Referring Provider Specialty: Medical Address: [address], [place], [address] Email: Occupational Therapy Treatment Note OT Outpatient Treatment Note - Adult Start: 12/21/23 09:34 Freq: Status: Active Protocol: Document 02/07/24 15:30 AMS (Rec: 02/07/24 15:37 AMS [id number]) OT Outpatient Adult Treatment Note Session Time Visit Start Time 11:30 Visit Stop Time 12:00 Visit Information Visit Number 9 Plan of Care Dates 01/31/24 - 03/13/24 Insurance Information [facility]; x 15 visits auth to 04/18/24 Setting Treatment Setting Outpatient Care Visit Type Note Type Treatment Note General Information General Information *Tape allergy Rosy (preference for Nelida) is 63 y.o. 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 Nelida's medical history is significant for arthritis, back pain, blood pressure concerns, depression, diabetes II, fibromyalgia, osteopenia, breast cancer (), and PTSD. 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 She received therapy at [facility] in [place] for her L shoulder (for rotator cuff) and both hands last year in 2022 (treatment included hand massager/cupping tool, heat packs, ultrasound, and tendon glides). A rocker knife has been rec for cutting of meat. She also reported receiving corticosteroid injections to the L thumb d/t trigger finger w/ reported resolving of symptoms, as well as received corticosteroid injection to L CMCJ. She maintains her medication list on her personal cell phone, including name, purpose, and dosage: Albuterol inhaler ( asthma), amlodipine (blood pressure), atorvastatin ( cholesterol), buspirone ( anxiety), Empagufozin ( diabetes II), cetirizine ( allergies), benadryl ( allergies night time), Cholecalciferol (D3 deficient) , gabapentin (fibromyalgia), glipizide (diabetes II), hydroxychloroquine (arthritis) , leflunomide (arthritis), letrozole (breast cancer), levothroxine (thyroid), ozempic (diabetes II), Prazosin (PTSD), zometa ( prevention of calcium loss d/t letrozole), trazadone, losartan, celebrex (200 mg daily: anti-inflammatory). Pain Assessment Grid completed w/ indication of 4 out of 10 relative to anterior/top/ posterior L shoulder and inferior angle/medial border of R scapula. No indication of pain/discomfort in L ankle, although, she does wear a [facility] provided brace at all times on the L ankle (or reports that she will fall). She has smaller night time bilateral hand braces, as well as larger bilateral distal UE braces ( that she can not wear d/t removal w/ PTSD associated nightmares). Ambulated to session w/ elbow crutches. QuickDASH UE Outcome Measure Score = 59.09; indication of presence of tingling (pins and needles in arm, shoulder, hand since chemotherapy in 2019). QuickDASH Sports/ Performing Arts Module Score = 25.00; she plays the acoustic guitar and practices daily for at least 15 min depending on how her hands are feeling. She has invested in a 4-inch wide memory foam based guitar strap (vs original 2-inch wide standard guitar strap) which has helped as well. She sings acapella and plays acoustic guitar weekly which helps with her PTSD. She has a daily finger/hand flexibility routine, including opposition of thumb to finger tips and thumb circles. Mild flexion posturing of digits 2-5 w/ modified prayor stretch into extension; tenderness to palpation at bilateral CMCJs. (+) thumb adductor tightness palpated along 2nd metacarpal R > L, w/ slight tendency into hyperext at MPJs bilaterally w/ active thumb abd/ext. Bilateral radial thumb abd 50 degrees active. Bilateral palmar thumb abd 45 degrees active. Rec adding to current HEP as needed. - Subjective Identification Type Name Identification Reconciled With Medical Record Observations Use of single R elbow crutch d /t reported instability of ankle; use of lanyard and clothing with pockets available for use for transportation of items. Slightly shortened session d/t Rosy arriving late given inability to cross over bridge . 01/17/24 = Use of circular silicone pad (dycem? or silicone cone jar process design chemical engineer) to assist with opening items/ including water bottles. 01/11/24 = Meaningful activities include playing the guitar, singing in [employer]. Wears fleece fishermans gloves. (+) response to isotoner/compression gloves ~2 -3 inches to wrists. Rosy reported that her MD at the [facility] suggested acupuncture d/t chronic pain. Sleeps upright in recliner given rotator cuff injury (L UE); uses cpap machine. Patient/Caregiver Compliance with Home Excellent Exercise Program - Objective Objective Measurements Please refer to below for progress towards meeting established OT goals: Senior Living Goals 1. Rosy will be modified independent with execution of home exercise program utilizing written/visual instructions as needed. - Treatment 2 Descriptor Manual therapy. Myofascial release completed by clinician to address thumb adductor tightness. 1 Descriptor Ultrasound. 20% duty cycle; x 10 minutes. 2.0 w/cm2. Skin intact pre- and post- treatment. Address swelling/ muscular tightness. Dorsal surface of hand (between 1st and 2nd metacarpals). Exercises 1 Descriptor Reviewed HEP/discussed alternatives. Instructed in isometric thumb ext w/ positioning of thumb below 2nd digit w/ rec hold of 3-5 sec, 3 x 10. Isometric hold w/ lateral serrano pinch against 2nd digit may also be another option if foam rectangles or putty aggravates arthritic symptoms. Thumb circles. Tendon glides. Passive MPJ ext w/ modified prayer pose w/ hold of 20-30 [address] ways. Bilateral self-myofasical release w/ hold of 20-30 sec both ways; instructed in modification w/ use of ' practice golf ball'. Instructed in passive functional 'c' or thumb -> 2nd digit pad tip pinch w/ use of 'practice golf ball'; rec hold for 20-30 seconds (to support motor retraining/ passive ranging). Trialed tug- o-war w/ 'practice golf ball' w/ tip pinch w/ contralateral hand pulling for isometric hold for 3-5 sec; verbally indicated discomfort w/ this exercise. Thus, ceased (could work up to 3 x 10). Passive wrist/digit ext w/ forearm pronation w/ elbow in 90 degrees flex. Discussed potential use of TT and/or wall for passive wrist/digit ext; Rosy indicated that these would not be good options for her. Instructed in passive wrist RD/UD w/ use of TT w/ hold of 20-30 sec. - Assessment Assessment of Improvement Utilization of single R elbow crutch (use of single L elbow crutch session before); elbow crutches utilized w/ mobility given instability of ankle and increased risk for loss of balance/fall. Rosy demonstrates good recall of exercises instructed in, including ability to recall exercises as per directed by previous therapist. Reported availability of different resistances of foam rectangles in the home. Discussed isometric resistance w/ ext w/ positioning of thumb beneath 2nd digit w/ 3-5 sec hold, 3 x 10 reps. She demonstrates good functional problem solving and actively utilizes adaptive equipment as needed/ modification strategies, such as lanyard, medical ID in personal wallet, circular dycem pad for opening of containers and is kept in car. She limits her guitar play time to 15 minutes and performs ROM as needed, as well as wears splints at night as directed previously. She performs thumb circles/active thumb flex/ext/abd and has been instructed on myofascial thumb release, isometric functional 'c' or 'o' strengthening and is aware of dorsal interrossei strengthening w/ rubberband. Continued therapy services to advance HEP as tolerated, review joint protection principles/avoiding positions of deformity w/ coal loader particularly when force is used. - Plan Therapy Recommendations Continue with Current Program, Advance per Rehabilitation Protocol Modalities As Needed,As Prescribed Additional Types of Modalities Heat/Ice/Contrast Baths/ Ultrasound/Paraffin bath
--- NOTE | 2024-03-14 08:24 | OT.OP.DC ---
Visit Care Team Role Provider Type JIM Butler Attending Provider Non-Staff Family Provider Primary Care Provider Referring Provider Address: [address] [place] [address] [address], [place], [address] Email: OT Outpatient OT Outpatient Adult Evaluation Start: 12/21/23 09:34 Freq: Status: Active Protocol: Document 12/20/23 16:00 AMS (Rec: 12/21/23 10:17 AMS [id number]) General Information - Adult Visit Information Visit Number 1 Plan of Care Dates 12/20/23 - 01/31/24 Insurance Information [facility] [employer]; x 15 visits auth to 04/18/24 Session Time Visit Start Time 13:50 Visit Stop Time 14:30 Setting Treatment Setting Outpatient Care Visit Type Note Type Initial Evaluation Identification Identification Confirmed Yes Identification Confirmed By Self Goals Senior Living Goals Access Control Officer Goals 1. Rosy will be modified independent with execution of home exercise program utilizing written/visual instructions as needed. Assessment/Plan Assessment Treatment Assessment Rosy (preference for Nelida) is 63 y.o. 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 Nelida's medical history is significant for arthritis, back pain, blood pressure concerns, depression, diabetes II, fibromyalgia, osteopenia, breast cancer (2003/2019), and PTSD. 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 She received therapy at [facility] in [place] for her L shoulder (for rotator cuff) and both hands last year in 2022 (treatment included hand massager/cupping tool, heat packs, ultrasound, and tendon glides). A rocker knife has been rec for cutting of meat. She also reported receiving corticosteroid injections to the L thumb d/t trigger finger w/ reported resolving of symptoms, as well as received corticosteroid injection to L CMCJ. She maintains her medication list on her personal cell phone, including name, purpose, and dosage: Albuterol inhaler ( asthma), amlodipine (blood pressure), atorvastatin ( cholesterol), buspirone ( anxiety), Empagufozin ( diabetes II), cetirizine ( allergies), benadryl ( allergies night time), Cholecalciferol (D3 deficient) , gabapentin (fibromyalgia), glipizide (diabetes II), hydroxychloroquine (arthritis) , leflunomide (arthritis), letrozole (breast cancer), levothroxine (thyroid), ozempic (diabetes II), Prazosin (PTSD), zometa ( prevention of calcium loss d/t letrozole), trazadone, losartan. Pain Assessment Grid completed w/ indication of 4 out of 10 relative to anterior /top/posterior L shoulder and inferior angle/medial border of R scapula. No indication of pain/discomfort in L ankle, although, she does wear a [facility] provided brace at all times on the L ankle (or reports that she will fall). She has smaller night time bilateral hand braces, as well as larger bilateral distal UE braces ( that she can not wear d/t removal w/ PTSD associated nightmares). Ambulated to session w/ elbow crutches. QuickDASH UE Outcome Measure Score = 59.09; indication of presence of tingling (pins and needles in arm, shoulder, hand since chemotherapy in 2019). QuickDASH Sports/ Performing Arts Module Score = 25.00; she plays the acoustic guitar and practices daily for at least 15 min depending on how her hands are feeling. She has invested in a 4-inch wide memory foam based guitar strap (vs original 2-inch wide standard guitar strap) which has helped as well. She sings acapella and plays acoustic guitar weekly which helps with her PTSD. She has a daily finger/hand flexibility routine, including opposition of thumb to finger tips and thumb circles. Mild flexion posturing of digits 2-5 w/ modified prayor stretch into extension; tenderness to palpation at bilateral CMCJs. (+) thumb adductor tightness palpated along 2nd metacarpal R > L, w/ slight tendency into hyperext at MPJs bilaterally w/ active thumb abd/ext. Bilateral radial thumb abd 50 degrees active. Bilateral palmar thumb abd 45 degrees active. Rec adding to current HEP as needed. Home Exercise Program 12/20/23 = Rec cont w/ tendon glides, thumb opposition, thumb circles w/ joint awareness, w/ suggestion for modified prayer stretch for encouraging extension. Plan Length of treatment (weeks) 6 Plan of Care Start Date 12/20/23 Plan of Care End Date 01/31/24 Treatment Frequency Once a Week Therapeutic Contents Active Range of Motion, Adaptive Equipment Education, Client Education,Functional Activities,Home Exercise Program,Joint Protection, Manual Therapy,Education, Stretching/Flexibility Activities,Therapeutic Activities,Therapeutic Exercises,Modalities Modalities As Needed,As Prescribed Additional Types of Modalities Heat/Ultrasound/Paraffin/ Contrast/Ice Functional Wrist/Hand Scan Hand Side Sensory Assessment Sensory Profile2 OT Outpatient Treatment Note - Adult Start: 12/21/23 09:34 Freq: Status: Active Protocol: Document 03/14/24 08:21 AMS (Rec: 03/14/24 08:24 AMS [id number]) OT Outpatient Adult Treatment Note Visit Information Visit Number 9 Plan of Care Dates 01/31/24 - 03/13/24 Insurance Information [facility]; x 15 visits auth to 04/18/24 Setting Treatment Setting Outpatient Care Visit Type Note Type Discharge Summary General Information General Information *Tape allergy Rosy (preference for Nelida) is 63 y.o. 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 Nelida's medical history is significant for arthritis, back pain, blood pressure concerns, depression, diabetes II, fibromyalgia, osteopenia, breast cancer (), and PTSD. 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 She received therapy at [facility] in [place] for her L shoulder (for rotator cuff) and both hands last year in 2022 (treatment included hand massager/cupping tool, heat packs, ultrasound, and tendon glides). A rocker knife has been rec for cutting of meat. She also reported receiving corticosteroid injections to the L thumb d/t trigger finger w/ reported resolving of symptoms, as well as received corticosteroid injection to L CMCJ. She maintains her medication list on her personal cell phone, including name, purpose, and dosage: Albuterol inhaler ( asthma), amlodipine (blood pressure), atorvastatin ( cholesterol), buspirone ( anxiety), Empagufozin ( diabetes II), cetirizine ( allergies), benadryl ( allergies night time), Cholecalciferol (D3 deficient) , gabapentin (fibromyalgia), glipizide (diabetes II), hydroxychloroquine (arthritis) , leflunomide (arthritis), letrozole (breast cancer), levothroxine (thyroid), ozempic (diabetes II), Prazosin (PTSD), zometa ( prevention of calcium loss d/t letrozole), trazadone, losartan, celebrex (200 mg daily: anti-inflammatory). Pain Assessment Grid completed w/ indication of 4 out of 10 relative to anterior/top/ posterior L shoulder and inferior angle/medial border of R scapula. No indication of pain/discomfort in L ankle, although, she does wear a [facility] provided brace at all times on the L ankle (or reports that she will fall). She has smaller night time bilateral hand braces, as well as larger bilateral distal UE braces ( that she can not wear d/t removal w/ PTSD associated nightmares). Ambulated to session w/ elbow crutches. QuickDASH UE Outcome Measure Score = 59.09; indication of presence of tingling (pins and needles in arm, shoulder, hand since chemotherapy in 2019). QuickDASH Sports/ Performing Arts Module Score = 25.00; she plays the acoustic guitar and practices daily for at least 15 min depending on how her hands are feeling. She has invested in a 4-inch wide memory foam based guitar strap (vs original 2-inch wide standard guitar strap) which has helped as well. She sings acapella and plays acoustic guitar weekly which helps with her PTSD. She has a daily finger/hand flexibility routine, including opposition of thumb to finger tips and thumb circles. Mild flexion posturing of digits 2-5 w/ modified prayor stretch into extension; tenderness to palpation at bilateral CMCJs. (+) thumb adductor tightness palpated along 2nd metacarpal R > L, w/ slight tendency into hyperext at MPJs bilaterally w/ active thumb abd/ext. Bilateral radial thumb abd 50 degrees active. Bilateral palmar thumb abd 45 degrees active. Rec adding to current HEP as needed. - Subjective Observations Rosy has not been seen in the outpatient setting by OT since 02/07/24 and outpatient OT POC on 03/13/24. Thus, recommend d/c from outpatient OT services at this time and re-evaluate as deemed appropriate with receipt of new referral from PCP. - Objective Objective Measurements Please refer to below for progress towards meeting established OT goals: Senior Living Goals ALL GOALS D/C 03/14/24 1. Rosy will be modified independent with execution of home exercise program utilizing written/visual instructions as needed. - - Assessment Assessment of Improvement Rosy has not been seen in the outpatient setting by OT since 02/07/24 and outpatient OT POC on 03/13/24. Thus, recommend d/c from outpatient OT services at this time and re-evaluate as deemed appropriate with receipt of new referral from PCP. - Plan Therapy Recommendations Discharge from Occupational Therapy
== END 2024-03-18 10:47 | disposition home or self-care (01) ==
LOC: OT 11:15
PROVIDERS: Family Provider Nurse Practitioner Family; PCP Nurse Practitioner Family; Referring Provider Nurse Practitioner Family; Visit Provider Nurse Practitioner Family
DX: M79.641 Pain in right hand (principal)
CPT/HCPCS: 97035; 97110; 97140; 97165